=== PATIENT | female | born 1945 | race Caucasian/White ===

== ENCOUNTER → 2016-12-04 | Outpatient (CLI) | payer OTHER ==
[~2016-12-04] MED LIST: ACET-1256 PO; ANT25 PO; ASPI81TA28 PO; CALC-20 PO; CYCL0.052 OP; GLUCTAB7; KETO1DRO13 OPB; KLN1X PO; LEVO-217 PO; LEVO50TA6 PO; MAGN1CAP4 PO; MAGN250T3 PO; MAGN400T6 PO; MECL1TAB42 PO; NORT10CA2 PO; NRT/25 PO; OMEG10007 PO; POTA20TA11 PO; PRT40 PO; RIBO100C PO; RIBO100T2 PO; RIBO1TAB4 PO; RSTOPS OP; VALA1TAB31 PO; VITA400C15 PO; VITACAP37 PO
--- NOTE | 2016-12-04 16:39 | MAMMOGRAPHY REPORT ---
BILATERAL DIGITAL DIAGNOSTIC MAMMOGRAM TOMOSYNTHESIS WITH CAD AND TARGETED RIGHT ULTRASOUND: 7 CLINICAL HISTORY: History left breast cancer status post lumpectomy and radiation therapy. Also wit h a history of a benign stereotactic biopsy of the left breast. The patient is currently asymptomat ic. TECHNIQUE: Breast tomosynthesis in addition to standard 2D mammography was performed. Current study was also evaluated with a Computer Aided Detection (CAD) system. Bilateral CC and MLO 2-D and devang synthesis views were obtained. COMPARISON: Comparison is made to exams dated: 12/03/2015 mammogram, 05/29/2015 mammogram, 05/14/2015 m ammogram, and 04/26/2014 mammogram - [facility]. BREAST COMPOSITION: There are scattered areas of fibroglandular density in both breasts. FINDINGS: There are stable postsurgical changes in the left upper outer quadrant from prior lumpecto my, including stable density and mild architectural distortion seen at the lumpectomy bed. A biopsy marker clip is again noted in the left medial breast from prior benign stereotactic biopsy. There is an oval obscured mass measuring approximately 10 mm in the right 3:00 breast, which was not clear ly seen on prior exams. The remainder of both breasts are stable compared to prior exams, without s uspicious masses, calcifications, or areas of architectural distortion noted. Targeted ultrasound was performed of the right medial breast in the region of the mammographic mass. In the right breast at 3:00, 3 cm from the nipple, there is an oval circumscribed anechoic mass wh ich measures 10 x 4 x 11 mm. This corresponds with the mammographic mass and is consistent with a b enign simple cyst. IMPRESSION: ACR BI-RADS CATEGORY 2: BENIGN, TARGETED ULTRASOUND ACR BI-RADS CATEGORY 2: BENIGN Stable postsurgical changes in the left breast from prior lumpectomy. Benign 11 mm simple cyst in t he right breast at 3:00. There is no mammographic or targeted sonographic evidence of malignancy. Recommend bilateral diagnostic mammograms in one year. The patient has been verbally notified of th e results. Approximately 10% of breast cancers are not detected with mammography. A negative mammographic repor t should not delay biopsy if a clinically suggestive mass is present. Lorri Dent M.D. /:12/04/2016 14:51:43 Manufacturers Agent: Norma Garcia RT(R)(M), [facility] letter sent: Normal /2 BI-RADS Code: ACR BI-RADS Category 2: Benign Ultrasound BI-RADS: ACR BI-RADS Category 2: Benign
== END | disposition home or self-care (01) ==
LOC: C.MAMM 13:52
PROVIDERS: ATTEND Radiology Radiation Oncology
DX: C50.912 Malignant neoplasm of unspecified site of left female breast (principal); N60.01 Solitary cyst of right breast

== ENCOUNTER 2017-07-23 21:24 | Observation (INO) | payer OTHER ==
[~2017-07-23] VITALS: Ht 154.9 cm; Wt 66.8 kg
[~2017-07-23 21:24] MED LIST changes: -CYCL0.052 OP; -KETO1DRO13 OPB; -LEVO50TA6 PO; -MAGN1CAP4 PO; -MAGN250T3 PO; -MECL1TAB42 PO; -NRT/25 PO; -POTA20TA11 PO; -PRT40 PO; -RIBO100C PO; -RIBO1TAB4 PO; -VITACAP37 PO
[2017-07-23] MEDS ORDERED: LEVO50TA6 PO (22:02)
[2017-07-23] MEDS ORDERED: NRT/25 PO (22:02)
--- NOTE | 2017-07-23 22:25 | EMERGENCY ROOM VISIT NOTE ---
History Report prepared by Roxy: Regan Sher Under the Supervision of: John VillegasO. First contact with patient: 21:56 Chief Complaint: CHEST PAIN Stated Complaint: CHEST PAIN Nursing Triage Summary: pt arrives via ALS from the critical access [facility] per ALS pt reports chest pressure/heaviness accross the middle of her chest she also reports pressure in the back of her head, she has a history of vertigo she reports she took meclizine @ 1900 and ASA 81mg @ 2000 EMS also gave her 324mg ASA pt reports no relief from either medications pt states concern about blood pressure being higher than normal also reports Tape allergy History of Present Illness The patient is a 72 year old female who presents to the Emergency Room with complaints of constant, localized, anterior chest pressure beginning 5 hours ago. The patient states she was walking around the critical access hospital and all of a sudden her symptoms appeared. She reports she experienced chest pressure, fatigue, nausea, decreased appetite, and head pressure. The patient notes that she went to her motor home and laid down in the AC. She states she has a history of vertigo, and she thought maybe that's what it was. She notes that stress typically triggers her vertigo. The patient reports that it was not like a typical vertigo experience, but she still took a meclizine 3 hours ago. She notes that her ears became hot. The patient states that she took her blood pressure, and it was 143/95; her baseline is 110/60. She reports that she took a baby aspirin thinking her symptoms were heart related. The patient notes that she called her to have EMS come and take her blood pressure. She states that EMS hooked her up to a heart machine and told her she should go to the ED. The patient reports that she went to the bathroom in the ED. She notes that when she came out, her ears were hot, and she was very pale. The patient states that she has never had symptoms like this before. She denies arm pain, jaw pain, shortness of breath, changes in bowel movement, changes in urination, edema to the legs, dehydration, medication changes, cough, recent cold, history of thyroid problems, and seeing a manager employee benefits. Source of History: patient Onset: 5 hours ago Position: chest Quality: pressure Timing: constant Associated Symptoms: + nausea, + fatigue, No cough, No SOB Note: Associated symptoms: decreased appetite, head pressure, hot ears, pale skin Denies arm pain, jaw pain, changes in bowel movement, changes in urination, edema to the legs, dehydration, medication changes, and recent cold. Review of Systems See HPI for pertinent positives & negatives. A total of 10 systems reviewed and were otherwise negative. Past Medical & Surgical Medical Problems: (1) Back strain (2) Carcinoma of upper-outer quadrant of left female breast (3) Contusion of sacral region (4) Depressive Disorder Nec (5) Head injury (6) Hyperlipidemia Nec/Nos (7) Hypothyroidism (8) Malign Neopl Breast Nos (9) Spasm of back muscles (10) Vertigo Surgical Problems: (1) H/O breast surgery (2) History of colon resection (3) Hx of cholecystectomy Family History FHx: cancer Social History Smoking Status: Never Smoker Alcohol Use: none Drug Use: none Marital Status: Housing Status: lives with family Occupation Status: employed Current/Historical Medications Scheduled Aspirin (Aspirin Ec), 81 MG PO DAILY Calcium Carbonate-Vitamin D (Calcium 600 + D), 2 TAB PO DAILY Clonazepam (Clonazepam), 1 MG PO HS Cyclosporine (Restasis Eye Drops), 1 DROP OP BID Fish Oil (Sherwood-3), 2 CAP PO DAILY Wcpbcdhorqg-Rbqztyyvqzw-Rtb C- (Glucosamine Chondroitin), 3,000 MG DAILY Ketotifen Fumarate (Ophth) (Thera Tears Allergy Eye I), 1 DROP OPB DIRECTED Levothyroxine Sodium (Levothyroxine Sodium), 50 MCG PO DAILY Magnesium Oxide (Magnesium), 500 MG PO DAILY Meclizine (Antivert *), 25 MG PO Q6HR PRN Nortriptyline Hcl (Pamelor), 25 MG PO HS Potassium Chloride Microencaps (Potassium Chloride Cr), 20 MEQ PO DAILY Riboflavin (Riboflavin), 400 MG PO DAILY Tocopheryl Acet,Dl-Alpha (Vitamin E), 400 INTER.UNIT PO BID Scheduled PRN Valacyclovir Hcl (Valtrex), 0 PO UD PRN for COLD SORES Allergies Coded Allergies: Codeine (Verified Adverse Reaction, Intermediate, SEVERE LETHARGY (" KNOCKS ME OUT"), 12/20/14) Uncoded Allergies: TAPE (Allergy, Severe, MENDEZ SEVERE REDNESS, 09/26/13) Physical Exam Vital Signs Date Time Temp Pulse Resp B/P (MAP) Pulse Ox O2 Delivery O2 Flow Rate FiO2 07/24/17 01:30 120/63 07/24/17 01:25 70 15 93 07/24/17 01:10 72 15 99 07/24/17 01:05 67 11 94 07/24/17 01:01 106/68 07/24/17 00:50 67 24 95 07/24/17 00:35 75 14 95 07/24/17 00:31 123/85 07/24/17 00:20 61 16 92 07/24/17 00:15 66 26 97 07/24/17 00:14 154/81 07/23/17 23:01 144/94 07/23/17 23:00 66 19 98 07/23/17 22:00 68 16 158/109 98 Room Air 07/23/17 21:42 70 07/23/17 21:34 97 Room Air 07/23/17 21:33 97 Room Air 07/23/17 21:33 37.0 71 20 156/82 98 Room Air Physical Exam GENERAL: alert, well appearing, well nourished, no distress, non-toxic EYE EXAM: normal conjunctiva, PERRL and EOM's grossly intact OROPHARYNX: no exudate, no erythema, lips, buccal mucosa, and tongue normal and mucous membranes are moist NECK: supple, no nuchal rigidity, no adenopathy, non-tender LUNGS: Clear to auscultation. Normal chest wall mechanics HEART: no murmurs, S1 normal and S2 normal ABDOMEN: abdomen soft, non-tender, normo-active bowel sounds, no masses, no rebound or guarding. CHEST: No reproducible chest tenderness. BACK: Back is symmetrical on inspection and there is no deformity, no midline tenderness, no CVA tenderness. SKIN: no rashes and no bruising UPPER EXTREMITIES: upper extremities are grossly normal. LOWER EXTREMITIES: No pitting edema. NEURO EXAM: Normal sensorium, cranial nerves II-XII grossly intact, normal speech, no gross weakness of arms, no gross weakness of legs. Medical Decision & Procedures ER Provider Diagnostic Interpretation: Radiology results have been interpreted by the radiologist and reviewed by me. CTA CHEST: No central pulmonary embolus. No effusion or consolidation. Cholecystectomy. Small low attenuation focus in the dome of the liver. Radiologist: Robyn Renee MD Study ready at 0001 and initial results transmitted at 0022. CT HEAD: No acute process. Involutional changes with small vessel disease. Radiologist: Robyn Renee MD Study ready at 7890 and initial results transmitted at 9170. CHEST ONE VIEW PORTABLE CLINICAL HISTORY: 72 years-old Female presenting with chest pain. TECHNIQUE: Portable upright AP view of the chest was obtained. COMPARISON: 07/30/2007. FINDINGS: Surgical clips noted in the left axilla. Cardiomediastinal silhouette normal. Lungs and pleural spaces clear. Osseous structures normal. Cholecystectomy clips noted. IMPRESSION: 1. No acute cardiopulmonary disease. Electronically signed by: Dean Quijano M.D. 07/23/2017 11:00 PM Dictated Date/Time: 07/23/2017 11:00 PM Laboratory Results 07/23/17 21:05 Red Blood Count 4.62, Mean Corpuscular Volume 94.2, Mean Corpuscular Hemoglobin 32.0, Mean Corpuscular Hemoglobin Concent 34.0, Mean Platelet Volume 10.4, Neutrophils (%) (Auto) 44.2, Lymphocytes (%) (Auto) 44.1, Monocytes (%) (Auto) 8.9, Eosinophils (%) (Auto) 1.9, Basophils (%) (Auto) 0.6, Neutrophils # (Auto) 2.98, Lymphocytes # (Auto) 2.98, Monocytes # (Auto) 0.60, Eosinophils # (Auto) 0.13, Basophils # (Auto) 0.04 Test 07/23/17 21:05 07/24/17 00:00 White Blood Count 6.75 K/uL (4.8-10.8) Red Blood Count 4.62 M/uL (4.2-5.4) Hemoglobin 14.8 g/dL (12.0-16.0) Hematocrit 43.5 % (37-47) Mean Corpuscular Volume 94.2 fL (80-100) Mean Corpuscular Hemoglobin 32.0 pg (25-34) Mean Corpuscular Hemoglobin Concent 34.0 g/dl (32-36) Platelet Count 218 K/uL (130-400) Mean Platelet Volume 10.4 fL (7.4-10.4) Neutrophils (%) (Auto) 44.2 % Lymphocytes (%) (Auto) 44.1 % Monocytes (%) (Auto) 8.9 % Eosinophils (%) (Auto) 1.9 % Basophils (%) (Auto) 0.6 % Neutrophils # (Auto) 2.98 K/uL (1.4-6.5) Lymphocytes # (Auto) 2.98 K/uL (1.2-3.4) Monocytes # (Auto) 0.60 K/uL (0.11-0.59) Eosinophils # (Auto) 0.13 K/uL (0-0.5) Basophils # (Auto) 0.04 K/uL (0-0.2) RDW Standard Deviation 42.6 fL (36.4-46.3) RDW Coefficient of Variation 12.5 % (11.5-14.5) Immature Granulocyte % (Auto) 0.3 % Immature Granulocyte # (Auto) 0.02 K/uL (0.00-0.02) Prothrombin Time 9.8 SECONDS (9.0-12.0) Prothromb Time International Ratio 0.9 (0.9-1.1) D-Dimer 570 ug/L FEU (0-500) Magnesium Level 2.3 mg/dl (1.8-2.4) Total Bilirubin 0.3 mg/dl (0.2-1) Aspartate Amino Transf (AST/SGOT) 22 U/L (15-37) Alanine Aminotransferase (ALT/SGPT) 30 U/L (12-78) Alkaline Phosphatase 98 U/L (45-117) Pro-B-Type Natriuretic Peptide 71 pg/ml (0-900) Total Protein 7.6 gm/dl (6.4-8.2) Albumin 3.5 gm/dl (3.4-5.0) Globulin 4.1 gm/dl (2.5-4.0) Albumin/Globulin Ratio 0.9 (0.9-2) Thyroid Stimulating Hormone (TSH) 5.450 uIu/ml (0.300-4.500) Chemistry Specimen Hemolysis Urine Color YELLOW Urine Appearance CLEAR (CLEAR) Urine pH 8.0 (4.5-7.5) Urine Specific Henderson 1.038 (1.000-1.030) Urine Protein NEG (NEG) Urine Glucose (UA) NEG (NEG) Urine Ketones NEG (NEG) Urine Occult Blood NEG (NEG) Urine Nitrite NEG (NEG) Urine Bilirubin NEG (NEG) Urine Urobilinogen NEG (NEG) Urine Leukocyte Esterase MODERATE (NEG) Urine WBC (Auto) 5-10 /hpf (0-5) Urine RBC (Auto) 0-4 /hpf (0-4) Urine Hyaline Casts (Auto) 0 /lpf (0-5) Urine Epithelial Cells (Auto) 5-10 /lpf (0-5) Urine Bacteria (Auto) NEG (NEG) Laboratory results per my review. Medications Administered Medications (Trade) Dose Ordered Sig/Royce Route Start Time Stop Time Status Last Admin Dose Admin Acetaminophen (Tylenol Tab) 1,000 mg NOW STAT PO 07/23/17 23:00 07/23/17 23:01 DC 07/23/17 23:00 1,000 MG Nitroglycerin (Nitroglycerin 2% Oint) 1 inch NOW ONCE EXT 07/23/17 23:00 07/23/17 23:01 DC 07/23/17 23:00 1 INCH Clonazepam (Klonopin Tab) 1 mg NOW STAT PO 07/24/17 01:10 07/24/17 01:11 DC 07/24/17 01:15 1 MG ECG Indication: other (chest pressure) Rate (beats per minute): 72 Rhythm: normal sinus Findings: no acute ischemic change, no ectopy, other (Normal axis and intervals ) ED Course 2158: The patient was evaluated in room B02. A complete history and physical exam was performed. 2300: Ordered Nitroglycerin 1 inch EXT, Tylenol Tab 1000mg PO 0028: Upon reevaluation, the patient is resting. Her chest pressure and head pressure are slightly better but still present. I discussed the findings and the treatment plan with the patient. She expresses agreement and understanding. 0044: I [facility] the patient's [facility] The patient will be evaluated for further treatment. Medical Decision Differential diagnoses includes but is not limited to acute coronary syndrome, myocardial infarction, pericarditis, pulmonary embolus, aortic dissection, pneumonia, pneumothorax, musculoskeletal, shingles, esophageal. Patient low risk by heart score however given persistence of chest pressure, and symptoms not typical for usual vertigo, no other obvious etiology, patient admitted for continued evaluation, serial enzymes, and treatment. Patient's chest pressure improved with nitroglycerin paste, head pressure improved with Tylenol. CT the patient's head negative, no other focal neuro deficits. Presentation different from patient's vertigo no improvement with her usual meclizine. No evidence of occult infection. Patient with elevated dimer and cannot be ruled out using perc criteria, CTA of the chest reassuring. Patient with mild hypertension here, other vital signs stable throughout. Discussed with hospitalist. Patient and states she was drinking water throughout the day and eating regularly, presentation not classically suggestive of dehydration or heat exhaustion related to outdoor activities. Medication Reconcilliation Current Medication List: was personally reviewed by me Blood Pressure Screening Patient's blood pressure: Elevated blood pressure Blood pressure disposition: Elevated BP felt to be situational Consults Time Called: 39 Consulting Physician: Ricky Meyers Hospitalist Returned Call: 43 I discussed the patient's case with Ricky Meyers Hospitalist. The patient will be evaluated for further treatment. Impression Primary Impression: Chest pain Additional Impressions: Headache HTN (hypertension) Scribe Attestation The scribe's documentation has been prepared under my direction and personally reviewed by me in its entirety. I confirm that the note above accurately reflects all work, treatment, procedures, and medical decision making performed by me. Departure Information Dispostion Being Evaluated By Hospitalist Prescriptions Potassium Chloride Microencaps (POTASSIUM CHLORIDE CR) 20 Meq Tab 20 MEQ PO DAILY, #30 TAB 5 Refills Prov: Eren Fitzgerald M.D. 07/24/17 Referrals Demetria Rayo M.D. (PCP) Patient Instructions My [facility] Problem Qualifiers Primary Impression: Chest pain Chest pain type: unspecified Qualified Codes: R07.9 - Chest pain, unspecified Additional Impressions: Headache Headache type: unspecified Headache chronicity pattern: acute headache Intractability: not intractable Qualified Codes: R51 - Headache HTN (hypertension) Hypertension type: unspecified Qualified Codes: I10 - Essential (primary) hypertension
[2017-07-23] MEDS ORDERED: KETO1DRO13 OPB (22:26)
[2017-07-23] MEDS ORDERED: MAGN1CAP4 PO (22:26)
[2017-07-23 22:53] LABS: BASO % 0.6 %; BASO ABS # 0.04 K/uL (0-0.2); COMPLETE YES; EOS % 1.9 %; HEMATOCRIT 43.5 % (37-47); IG% 0.3 %; LYMPH % 44.1 %; LYMPH ABS # 2.98 K/uL (1.2-3.4); MEAN CELL VOLUME 94.2 fL (80-100); MEAN PLATELET VOLUME 10.4 fL (7.4-10.4); MONO % 8.9 %; NEUT % 44.2 %; PLATELET COUNT 218 K/uL (130-400); RED BLOOD COUNT 4.62 M/uL (4.2-5.4); WHITE BLOOD COUNT 6.75 K/uL (4.8-10.8)
[2017-07-23] MEDS ORDERED: NITROGLYCERIN OINT 2% 1GM PACKET EXT ONE (23:00)
[2017-07-23] MEDS ORDERED: ACETAMINOPHEN 500 MG TAB PO STA (23:00)
[2017-07-23 23:02] LABS: INR 0.9 (0.9-1.1); PROTHROMBIN TIME (PATIENT) 9.8 SECONDS (9.0-12.0)
--- NOTE | 2017-07-23 23:02 | DIAGNOSTIC IMAGING REPORT ---
CHEST ONE VIEW PORTABLE CLINICAL HISTORY: 72 years-old Female presenting with chest pain. TECHNIQUE: Portable upright AP view of the chest was obtained. COMPARISON: 07/30/2007. FINDINGS: Surgical clips noted in the left axilla. Cardiomediastinal silhouette normal. Lungs and pleural spaces clear. Osseous structures normal. Cholecystectomy clips noted. IMPRESSION: 1. No acute cardiopulmonary disease. Electronically signed by: Dean Quijano M.D. 07/23/2017 11:00 PM Dictated Date/Time: 07/23/2017 11:00 PM
[2017-07-23 23:06] LABS: ALT/SGPT 30 U/L (12-78); BLOOD UREA NITROGEN 22 mg/dl (7-18); BUN/CREATININE RATIO 20.4 (10-20); CALCIUM 8.9 mg/dl (8.5-10.1); CARBON DIOXIDE 30 mmol/L (21-32); CHLORIDE 107 mmol/L (98-107); GLUCOSE 85 mg/dl (70-99); MAGNESIUM 2.3 mg/dl (1.8-2.4); POTASSIUM 3.9 mmol/L (3.5-5.1); SODIUM 142 mmol/L (136-145)
[2017-07-23 23:26] LABS: ALB/GLOB RATIO 0.9 (0.9-2); ALKALINE PHOSPHATASE 98 U/L (45-117); AST/SGOT 22 U/L (15-37)
[2017-07-23] MEDS ORDERED: OPTIRAY 320 IV PRN (23:30)
[2017-07-24] MEDS ORDERED: CLONAZEPAM 1 MG TAB PO STA (00:53)
--- NOTE | 2017-07-24 00:53 | History and Physical ---
History & Physical Date & Time of Service: Jul 24, 2017 at 00:53 Chief Complaint: Chest Pain Primary Care Physician: Demetria Rayo M.D. History of Present Illness Source: patient This a 72 yo F with prior hx of breast CA , hyperlipidemia , Hypothyroidism , present to ED with ongoing central chest pain /heaviness pt was at [facility] earlier ,was walking around with her -they have a motor home at site she started to experience central chest discomfort , heaviness , dizzy spell had sit down to rest , had minimum improvement of symptom she continued to feel unwell , went back to her motor home to rest , continued to have central heaviness , SOB , found her blood pressure to be elevated than her usual baseline The Medics on the site was called , pt had repeat vitals checked SBP was in 130' s ( pt mentions her baseline usually 118-120 ) due to her ongoing angina symptom -pt was directed to ED for eval Past Medical/Surgical History Medical Problems: (1) Back strain Status: Resolved (2) Carcinoma of upper-outer quadrant of left female breast Permanent Comment: Abnormal left breast mammogram Status post biopsy revealing invasive ductal carcinoma Status post lumpectomy and sentinel lymph node biopsy pathologic [id number] estrogen receptor positive, progesterone receptor positive, HER-2/arie negative Oncotype DX score of 12 Status post completion of radiation therapy 01/20/2014 received 5940 cGy Did not tolerate antiestrogen therapy Status: Resolved (3) Contusion of sacral region Status: Resolved (4) Depressive Disorder Nec Status: Chronic (5) Head injury Status: Resolved (6) Hyperlipidemia Nec/Nos Status: Chronic (7) Hypothyroidism Status: Chronic (8) Malign Neopl Breast Nos Status: Resolved (9) Spasm of back muscles Status: Resolved (10) Vertigo Status: Chronic Surgical Problems: (1) H/O breast surgery Status: Resolved (2) History of colon resection Status: Resolved (3) Hx of cholecystectomy Status: Resolved Family History FHx: cancer Social History Smoking Status: Never Smoker Drug Use: none Marital Status: Occupational Status: employed Immunizations History of Influenza Vaccine: Unknown History of Tetanus Vaccine?: Unknown History of Pneumococcal: Unknown History of Hepatitis B Vaccine: Unknown Multi-Drug Resistant Organisms History of MDRO: No Allergies Coded Allergies: Codeine (Verified Adverse Reaction, Intermediate, SEVERE LETHARGY (" KNOCKS ME OUT"), 12/20/14) Uncoded Allergies: TAPE (Allergy, Severe, MENDEZ SEVERE REDNESS, 09/26/13) Home Medications Scheduled Aspirin (Aspirin Ec), 81 MG PO DAILY Calcium Carbonate-Vitamin D (Calcium 600 + D), 2 TAB PO DAILY Clonazepam (Clonazepam), 1 MG PO HS Cyclosporine (Restasis Eye Drops), 1 DROP OP BID Fish Oil ([place]-3), 2 CAP PO DAILY Nzgtdtpsztt-Msyujnpxjwu-Jqy C- (Glucosamine Chondroitin), 3,000 MG DAILY Ketotifen Fumarate (Ophth) (Thera Tears Allergy Eye I), 1 DROP OPB DIRECTED Levothyroxine Sodium (Levothyroxine Sodium), 50 MCG PO DAILY Magnesium Oxide (Magnesium), 500 MG PO DAILY Meclizine (Antivert *), 25 MG PO Q6HR PRN Nortriptyline Hcl (Pamelor), 25 MG PO HS Potassium Chloride Microencaps (Potassium Chloride Cr), 20 MEQ PO DAILY Riboflavin (Riboflavin), 400 MG PO DAILY Tocopheryl Acet,Dl-Alpha (Vitamin E), 400 INTER.UNIT PO BID Scheduled PRN Valacyclovir Hcl (Valtrex), 0 PO UD PRN for COLD SORES Review of Systems Constitutional: + sweats, + weakness, + fatigue Respiratory: + shortness of breath, + dyspnea on exertion Cardiovascular: + chest pain (CENTRAL CHEST HEAVINESS ) Abdomen: No pain, No nausea, No vomiting, No diarrhea, No constipation, No GI bleeding, No problem reported Neurologic: + weakness, + vertigo Psychiatric: + anxiety Endocrine: + fatigue Physical Exam Vital Signs Date Time Temp Pulse Resp B/P (MAP) Pulse Ox O2 Delivery O2 Flow Rate FiO2 07/24/17 00:15 66 26 97 07/24/17 00:14 154/81 07/23/17 23:01 144/94 07/23/17 23:00 66 19 98 07/23/17 22:00 68 16 158/109 98 Room Air 07/23/17 21:42 70 07/23/17 21:34 97 Room Air 07/23/17 21:33 97 Room Air 07/23/17 21:33 37.0 71 20 156/82 98 Room Air General Appearance: no apparent distress Head: normocephalic, atraumatic Eyes: normal inspection, PERRL, EOMI, sclerae normal Neck: supple, no adenopathy, thyroid normal, no JVD, no carotid bruits, trachea midline Respiratory/Chest: chest non-tender, lungs clear, normal breath sounds, no respiratory distress, no accessory muscle use Cardiovascular: regular rate, rhythm, no edema, no gallop, no JVD, no murmur, normal peripheral pulses Abdomen/GI: normal bowel sounds, non tender, soft Extremities/Musculoskelatal: normal inspection, no calf tenderness, normal capillary refill, no pedal edema, normal range of motion Neurologic/Psych: no motor/sensory deficits, alert, normal mood/affect, oriented x 3 Skin: normal color, warm/dry, no rash Lymphatic: no adenopathy Diagnostics Laboratory Results Results Past 24 Hours Test 07/23/17 21:05 Range/Units White Blood Count 6.75 4.8-10.8 K/uL Red Blood Count 4.62 4.2-5.4 M/uL Hemoglobin 14.8 12.0-16.0 g/dL Hematocrit 43.5 37-47 % Mean Corpuscular Volume 94.2 80-100 fL Mean Corpuscular Hemoglobin 32.0 25-34 pg Mean Corpuscular Hemoglobin Concent 34.0 32-36 g/dl Platelet Count 218 130-400 K/uL Mean Platelet Volume 10.4 7.4-10.4 fL Neutrophils (%) (Auto) 44.2 % Lymphocytes (%) (Auto) 44.1 % Monocytes (%) (Auto) 8.9 % Eosinophils (%) (Auto) 1.9 % Basophils (%) (Auto) 0.6 % Neutrophils # (Auto) 2.98 1.4-6.5 K/uL Lymphocytes # (Auto) 2.98 1.2-3.4 K/uL Monocytes # (Auto) 0.60 0.11-0.59 K/uL Eosinophils # (Auto) 0.13 0-0.5 K/uL Basophils # (Auto) 0.04 0-0.2 K/uL RDW Standard Deviation 42.6 36.4-46.3 fL RDW Coefficient of Variation 12.5 11.5-14.5 % Immature Granulocyte % (Auto) 0.3 % Immature Granulocyte # (Auto) 0.02 0.00-0.02 K/uL Prothrombin Time 9.8 9.0-12.0 SECONDS Prothromb Time International Ratio 0.9 0.9-1.1 D-Dimer 570 0-500 ug/L FEU Sodium Level 142 136-145 mmol/L Potassium Level 3.9 3.5-5.1 mmol/L Chloride Level 107 98-107 mmol/L Carbon Dioxide Level 30 21-32 mmol/L Anion Gap 5.0 3-11 mmol/L Blood Urea Nitrogen 22 7-18 mg/dl Creatinine 1.10 0.60-1.20 mg/dl Est Creatinine Clear Calc Drug Dose 42.4 ml/min Estimated GFR () 58.9 Estimated GFR (Non- 50.8 BUN/Creatinine Ratio 20.4 10-20 Random Glucose 85 70-99 mg/dl Calcium Level 8.9 8.5-10.1 mg/dl Magnesium Level 2.3 1.8-2.4 mg/dl Total Bilirubin 0.3 0.2-1 mg/dl Aspartate Amino Transf (AST/SGOT) 22 15-37 U/L Alanine Aminotransferase (ALT/SGPT) 30 12-78 U/L Alkaline Phosphatase 98 45-117 U/L Troponin I < 0.015 0-0.045 ng/ml Pro-B-Type Natriuretic Peptide 71 0-900 pg/ml Total Protein 7.6 6.4-8.2 gm/dl Albumin 3.5 3.4-5.0 gm/dl Globulin 4.1 2.5-4.0 gm/dl Albumin/Globulin Ratio 0.9 0.9-2 Thyroid Stimulating Hormone (TSH) 5.450 0.300-4.500 uIu/ml Chemistry Specimen Hemolysis Diagnostic Radiology CT HEAD WITH OUT CONTRAST : Impression: No acute intracranial abnormality. CXR normal, No Infiltrate, No Mass, No Effusion EKG Normal sinus rhythm Normal ECG When compared with ECG of 04-OCT-2007 07:45, No significant change was found Impression Assessment and Plan CHEST PAIN /ANGINA EQUIVALENT : presented with typical symptom of central chest heaviness, SOB associated with exertion symptom was mildly improved with rest cardiac marker -initial lab wnl , EKG normal sinus with out ST-T wave changes no prior hx of CAD given pt's age /hx of HTN /hyperlipidemia -moderate to high risk for CAD due to above symptom pt will be monitored in tele serial cardiac markers to be checked q 8hrs X2 resting ECHO ordered in AM will need Cardiac stress test if serial cardiac markers are negative and pt remains chest pain free ordered for NPO for possible cardiac stress test in AM cont with Aspirin 81 mg fasting lipid panel ordered will benefit with addition of statin if LDL > 100 HYPOTHYROIDISM cont Levothyroxine TSH mildly elevated ordered for Free T4 in AM labs CHRONIC DIZZY SPELL : also complains of frontal headache after initiating Nitro paste CT head -negative for acute CVA cont PRN Meclizine -pt's home med FULL CODE : DVT PROPHYLAXIS : sub q heparin DISPOSITION : expected to be discharged home when medically stable Medicine follow up with Dr Rayo Additional Copies To Demetria Rayo M.D.
[2017-07-24] MEDS ORDERED: CLONAZEPAM 0.5 MG TAB PO STA (01:10)
[2017-07-24] MEDS ORDERED: ALUMINUM/MAGNESIUM/SIMETH (MAALOX MAX) 30 ML UDC PO PRN (01:45)
[2017-07-24] MEDS ORDERED: ONDANSETRON INJ 2 MG/ML 2 ML VIAL IV PRN (01:45)
[2017-07-24] MEDS ORDERED: MAGNESIUM HYDROXIDE SUSP 30 ML UDC PO PRN (01:45)
[2017-07-24] MEDS ORDERED: NITROGLYCERIN 0.4 MG SL PER TAB CHARGE SL PRN (01:45)
[2017-07-24] MEDS ORDERED: MECLIZINE HCL 25 MG TAB PO PRN (01:45)
[2017-07-24] MEDS ORDERED: ZOLPIDEM TARTRATE 5 MG TAB PO PRN (01:45)
[2017-07-24] MEDS ORDERED: ACETAMINOPHEN 325 MG TAB PO PRN (01:45)
[2017-07-24] MEDS ORDERED: POLYETHYLENE (MIRALAX) 17 GM PACK PO PRN (01:45)
[2017-07-24] MEDS ORDERED: SODIUM CHLORIDE 0.9% 1000ML 1,000 ML IV SCH (02:15)
[2017-07-24 02:30] VITALS: BP 136/85; PULSE 64; TEMP 36.4; O2SAT 99; Ht 154.9 cm; Wt 66.8 kg
[2017-07-24 03:00] LABS: URINE APPEARANCE CLEAR (CLEAR); URINE BILIRUBIN NEG (NEG); URINE COLOR YELLOW; URINE NITRITE NEG (NEG); URINE SPECIFIC GRAVITY 1.038 (1.000-1.030); UROBILINOGEN NEG (NEG); ZZUR CULT IF INDIC CLEAN CATCH NO
[2017-07-24 03:03] LABS: MANUAL MICROSCOPIC REQUIRED? NO; REVIEW REQ? NO
[2017-07-24] MEDS: HEPARIN SOD 5000 UNIT/0.5 ML CARP SQ SCH ×2 (06:04→14:00)
[2017-07-24] MEDS ORDERED: LEVOTHYROXINE 50 MCG TAB PO SCH (06:30)
--- NOTE | 2017-07-24 07:20 | DIAGNOSTIC IMAGING REPORT ---
HEAD CT NONCONTRAST CT DOSE: 537.48 mGy.cm HISTORY: dizzy, headache TECHNIQUE: Multiaxial CT images of the head were performed without the use of intravenous contrast. Automated exposure control was utilized for this study. A dose lowering technique was utilized adhering to the principles of ALARA. Comparison: Head CT 12/27/2014. Findings: The paranasal sinuses and mastoid air cells are clear. The calvarium and skull base are intact. There is no mass, hematoma, midline shift, acute infarct. White matter hypodensity is nonspecific but suggestive of microvascular ischemic change. The ventricles and sulci demonstrate mild age-related involutional changes. Impression: No acute intracranial abnormality. Electronically signed by: Tramaine Winston M.D. 07/24/2017 7:19 AM Dictated Date/Time: 07/24/2017 7:16 AM
--- NOTE | 2017-07-24 07:37 | DIAGNOSTIC IMAGING REPORT ---
CT ANGIOGRAM OF THE CHEST CLINICAL HISTORY: Atypical chest pain. COMPARISON STUDY: Chest x-ray dated 07/23/2017. TECHNIQUE: Following the IV administration of 88 cc of Optiray 320, CT angiogram of the chest was performed from the upper abdomen to the thoracic inlet utilizing the pulmonary embolus protocol. Images are reviewed in the axial, sagittal, and coronal planes. 3-D MIPS images are created and assessed. IV contrast was administered without complication. A dose lowering technique was utilized adhering to the principles of ALARA. CT DOSE: 249.03 mGy.cm FINDINGS: Thyroid: Imaged portions of the thyroid gland are normal in size and attenuation. Thoracic aorta: The thoracic aorta is normal in caliber and demonstrates standard 3-vessel arch anatomy. No dissection is seen. Pulmonary vasculature: The pulmonary trunk is normal in caliber. There are no filling defects identified in main, lobar, or segmental pulmonary branches to suggest pulmonary embolus. Heart: The heart is normal in size and configuration, and without pericardial effusion. Lungs and pleural spaces: Evaluation of the lung parenchyma is modestly degraded by motion artifact. No airspace consolidation or pleural effusion is seen. A 3 mm low suspicion nodules incidentally noted in the right lung base on image #58. The trachea and central airways are clear. Mediastinum: There is no mediastinal lymphadenopathy. Areli: Clear. Axillae: There is no axillary lymphadenopathy. Surgical clips are noted in the left axilla. Upper abdomen: Cholecystectomy clips are noted. A 1.3 cm cyst is noted in the right lobe of the liver. Skeletal structures: The skeletal structures are osteopenic. Degenerative change is seen throughout the thoracic spine. There are mild age indeterminant compression deformities of T3, T5, T11, and T12. No lytic or blastic bony lesions are seen. IMPRESSION: 1. There is no evidence of pulmonary embolus in the main, lobar, or segmental pulmonary arteries. 2. There is no airspace consolidation or pleural effusion. Electronically signed by: Gerardo Alcocer M.D. 07/24/2017 7:36 AM Dictated Date/Time: 07/24/2017 7:24 AM
[2017-07-24 07:44] VITALS: BP 101/59; PULSE 68; TEMP 36.3; O2SAT 94
[2017-07-24] MEDS ORDERED: RESTASIS~ORDER AWAITING ACTION SCH (08:00)
[2017-07-24] MEDS ORDERED: KETOTIFEN~ORDER AWAITING ACTION SCH (08:00)
[2017-07-24 08:20] LABS: CKMB/CK RATIO 1.3 (0-3.0)
[2017-07-24 08:29] LABS: BUN/CREATININE RATIO 24.6 (10-20); CALCIUM 8.2 mg/dl (8.5-10.1); CREATININE 0.82 mg/dl (0.60-1.20); POTASSIUM 3.7 mmol/L (3.5-5.1)
[2017-07-24 08:31] LABS: CHOLESTEROL/HDL RATIO 3.5
[2017-07-24] MEDS ORDERED: TOCOPHERYL, DL-ALPHA 400 INTER.UNIT CAP PO SCH (09:00)
[2017-07-24] MEDS ORDERED: [UNRECOGNIZED DRUG - OTHER] SCH (09:00)
[2017-07-24] MEDS ORDERED: OMEGA-3 (PURIFIED FISH OIL) 1 GM CAP PO SCH (09:00)
[2017-07-24] MEDS ORDERED: ASPIRIN 81 MG ECTAB PO SCH (09:00)
[2017-07-24] MEDS ORDERED: CHONDROITIN SCH (09:00)
[2017-07-24] MEDS ORDERED: ASCORBIC ACID SCH (09:00)
[2017-07-24] MEDS ORDERED: GLUCOSAMINE SCH (09:00)
[2017-07-24] MEDS ORDERED: MAGNESIUM OXIDE 400 MG TAB PO SCH (09:00)
[2017-07-24] MEDS ORDERED: CALCIUM 600MG + VIT D 400 IU TAB PO SCH (09:00)
[2017-07-24 10:51] VITALS: BP 113/74; PULSE 76; TEMP 36.4; O2SAT 96
--- NOTE | 2017-07-24 13:13 | CARDIOLOGY CONSULTATION ---
DATE OF CONSULTATION: 07/24/2017 REFERRING: Dr. Dennis. PRIMARY CARE PHYSICIAN: Dr. Rayo. INDICATIONS: Chest and head pain. HISTORY OF PRESENT ILLNESS: The patient is a 72-year-old female without prior history of cardiac disease. Underlying history is notable for hypothyroidism, hyperlipidemia, past history of breast carcinoma, history of chronic vertigo. She notes yesterday evening was at the [facility] and noted symptoms of pressure across her chest as well as pressure across the back of her head. The patient took an aspirin and meclizine in attempts to improve symptoms, was concerned that her blood pressure was elevated and checked and found to be elevated in the 140/90 range, substantially out of her usual base. [place] her ears and face have been flushed. She summoned paramedics and EMS at [facility], noted on telemetry ventricular ectopic beats and recommended ER evaluation. She was referred to [facility]. Initial EKGs were normal, as was initial troponin. The patient was asymptomatic at the time of presentation, has had no further symptoms overnight, feels "better this morning," has been ambulatory in room. Notes that she is usually ambulatory, walking more than 10,000 steps per day per her monitor. Notes no recent decline in exercise tolerance. Notes no recent fevers, chills or infections. Notes no bleeding difficulties. Notes no melena, hematochezia, dysuria or hematuria. REVIEW OF SYSTEMS: Otherwise negative. ALLERGIES: CODEINE AND TAPE. MEDICATIONS: Prior to hospitalization were aspirin 81 mg per day, calcium with vitamin D, clonazepam, cyclosporine eyedrops, omega-3 fish oils, glucosamine chondroitin, levothyroxine 50 mcg per day, Mag-Ox 500 mg p.o. q. day, meclizine, nortriptyline 25 mg at bedtime, riboflavin 100 mg p.o. q. day, vitamin E 400 units q. day, valacyclovir p.r.n. PAST SURGICAL HISTORY: Notable for prior left mastectomy in 2012, past partial colectomy, cholecystectomy and nasal septal surgery. FAMILY HISTORY: Not notable for cardiac disease. SOCIAL HISTORY: The patient resides locally. She is a nonsmoker, nondrinker. She is active about her home and through her usual exercise of walking. PHYSICAL EXAMINATION: VITAL SIGNS: Heart rate 68, blood pressure is 101/59, O2 saturation is 94% on room air. HEENT: Normocephalic and atraumatic. Nares without discharge. Throat was clear. NECK: Supple without thyromegaly, lymphadenopathy, JVD or bruit. LUNGS: Clear to auscultation. CARDIOVASCULAR: Regular with normal S1, S2. There is no murmur, gallop or rub. ABDOMEN: Soft, nontender. EXTREMITIES: Without cyanosis or clubbing. There is no peripheral edema. NEUROLOGIC: The patient is alert and oriented, moving extremities with strength. LABORATORY DATA: Since admission, troponin I's are negative x2. BNP was 71. Sodium is 142, potassium is 3.7, chloride is 110, bicarb is 26, BUN is 20, creatinine 0.82. TSH was 5.4 with T4 of 0.8. D-dimer on initial presentation was [address] scan of the chest revealed no pulmonary emboli. Telemetry reveals sinus rhythm with occasional ventricular ectopic beats. Head CT was unremarkable. Chest x-ray revealed no infiltrate or edema. Echocardiogram is pending. IMPRESSION: A 72-year-old female with symptoms of chest pressure, appears to be sensed ventricular ectopic beats, possibly by recent telemetry and EKG strips. Currently feels well this morning. Blood pressures are not elevated, only notable finding on laboratory testing is potassium level of 3.7. PLAN: Will be to refer for stress echocardiography today. No adjustments made in medical regimen, though would have low threshold for supplementing potassium chronically.
[2017-07-24] MEDS ORDERED: PERFLUTREN LIPID MICROSPHERE (DEFINITY) IV ONE (13:43)
[2017-07-24 15:36] VITALS: BP 109/66; PULSE 72; TEMP 36.6; O2SAT 97
--- NOTE | 2017-07-24 15:37 | Progress Note ---
Medicine Progress Note Date & Time of Visit: Jul 24, 2017 at 15:37 . Subjective No further chest pain. Treadmill stress echo went well. Anxious to get back to the [facility]. . Objective Last 8 Hrs Date Time Temp Pulse Resp B/P (MAP) Pulse Ox O2 Delivery O2 Flow Rate FiO2 07/24/17 15:36 36.6 72 17 109/66 (80) 97 07/24/17 12:00 Room Air 07/24/17 10:51 36.4 76 16 113/74 (87) 96 07/24/17 08:00 Room Air 07/24/17 07:44 36.3 68 16 101/59 (73) 94 Room Air Physical Exam: General- no distress Neck- no JVD Lungs- clear Heart- regular Abdomen- normal bowel sounds, soft, nontender Extremities- no pretibial edema or calf tenderness Neuro- alert, oriented . Laboratory Results: Last 24 Hours Test 07/23/17 21:05 07/24/17 00:00 07/24/17 07:41 07/24/17 15:32 White Blood Count 6.75 K/uL Red Blood Count 4.62 M/uL Hemoglobin 14.8 g/dL Hematocrit 43.5 % Mean Corpuscular Volume 94.2 fL Mean Corpuscular Hemoglobin 32.0 pg Mean Corpuscular Hemoglobin Concent 34.0 g/dl Platelet Count 218 K/uL Mean Platelet Volume 10.4 fL Neutrophils (%) (Auto) 44.2 % Lymphocytes (%) (Auto) 44.1 % Monocytes (%) (Auto) 8.9 % Eosinophils (%) (Auto) 1.9 % Basophils (%) (Auto) 0.6 % Neutrophils # (Auto) 2.98 K/uL Lymphocytes # (Auto) 2.98 K/uL Monocytes # (Auto) 0.60 K/uL Eosinophils # (Auto) 0.13 K/uL Basophils # (Auto) 0.04 K/uL RDW Standard Deviation 42.6 fL RDW Coefficient of Variation 12.5 % Immature Granulocyte % (Auto) 0.3 % Immature Granulocyte # (Auto) 0.02 K/uL Prothrombin Time 9.8 SECONDS Prothromb Time International Ratio 0.9 D-Dimer 570 ug/L FEU Sodium Level 142 mmol/L 142 mmol/L Potassium Level 3.9 mmol/L 3.7 mmol/L Chloride Level 107 mmol/L 110 mmol/L Carbon Dioxide Level 30 mmol/L 26 mmol/L Anion Gap 5.0 mmol/L 6.0 mmol/L Blood Urea Nitrogen 22 mg/dl 20 mg/dl Creatinine 1.10 mg/dl 0.82 mg/dl Est Creatinine Clear Calc Drug Dose 42.4 ml/min 55.8 ml/min Estimated GFR () 58.9 84.0 Estimated GFR (Non- 50.8 72.5 BUN/Creatinine Ratio 20.4 24.6 Random Glucose 85 mg/dl 87 mg/dl Calcium Level 8.9 mg/dl 8.2 mg/dl Magnesium Level 2.3 mg/dl Total Bilirubin 0.3 mg/dl Aspartate Amino Transf (AST/SGOT) 22 U/L Alanine Aminotransferase (ALT/SGPT) 30 U/L Alkaline Phosphatase 98 U/L Troponin I < 0.015 ng/ml < 0.015 ng/ml Pro-B-Type Natriuretic Peptide 71 pg/ml Total Protein 7.6 gm/dl Albumin 3.5 gm/dl Globulin 4.1 gm/dl Albumin/Globulin Ratio 0.9 Thyroid Stimulating Hormone (TSH) 5.450 uIu/ml Chemistry Specimen Hemolysis Urine Color YELLOW Urine Appearance CLEAR Urine pH 8.0 Urine Specific [place] 1.038 Urine Protein NEG Urine Glucose (UA) NEG Urine Ketones NEG Urine Occult Blood NEG Urine Nitrite NEG Urine Bilirubin NEG Urine Urobilinogen NEG Urine Leukocyte Esterase MODERATE Urine WBC (Auto) 5-10 /hpf Urine RBC (Auto) 0-4 /hpf Urine Hyaline Casts (Auto) 0 /lpf Urine Epithelial Cells (Auto) 5-10 /lpf Urine Bacteria (Auto) NEG Total Creatine Kinase 63 U/L Creatine Kinase MB 0.8 ng/ml Creatine Kinase MB Ratio 1.3 Triglycerides Level 80 mg/dl Cholesterol Level 250 mg/dl HDL Cholesterol 72 mg/dl LDL Cholesterol, Calculated 162 mg/dl VLDL Cholesterol, Calculated 16 mg/dl Cholesterol/HDL Ratio 3.5 Free Thyroxine 0.81 ng/dl Assessment & Plan CHEST PAIN Cardiology consulted. Acute CA ruled out. No evidence of stress-induced ischemia on treadmill stress echo. Pulmonary embolism ruled out by CT angiography. Low clinical suspicion for aortic dissection. Patient was noted to have occasional ventricular ectopy on cardiac monitoring. It was felt that perhaps patient was sensing the PVCs. Serum potassium was relatively low at 3.7. Start potassium chloride 20 mEq daily. No need for further cardiac evaluation at this time. DISPOSITION Discharge to home. Family Medicine follow-up with Dr. Rayo. . Consultants: Cardiology . Procedures: Cardiac monitoring CTA chest Treadmill stress echocardiogram . Current Inpatient Medications: Current Inpatient Medications Medications (Trade) Dose Ordered Sig/Royce Route Start Time Stop Time Status Last Admin Dose Admin Ioversol (Optiray 320) 100 ml UD PRN IV 07/23/17 23:30 07/27/17 23:29 Heparin Sodium (Porcine) (Heparin Sq 5000 Unit/0.5ml) 5,000 unit Q8 SQ 07/24/17 06:00 08/23/17 05:59 07/24/17 06:04 5,000 UNIT Acetaminophen (Tylenol Tab) 650 mg Q4H PRN PO 07/24/17 01:45 08/23/17 01:44 07/24/17 10:49 650 MG Al Hydrox/Mg Hydrox/Simethicone (Maalox Max Susp) 15 ml Q4H PRN PO 07/24/17 01:45 08/23/17 01:44 Magnesium Hydroxide (Milk Of Magnesia Susp) 30 ml Q12H PRN PO 07/24/17 01:45 08/23/17 01:44 Zolpidem Tartrate (Ambien Tab) 5 mg HSZ PRN PO 07/24/17 01:45 08/23/17 01:44 Ondansetron HCl (Zofran Inj) 4 mg Q6H PRN IV 07/24/17 01:45 08/23/17 01:44 Nitroglycerin (Nitrostat Tab) 0.4 mg UD PRN SL 07/24/17 01:45 08/23/17 01:44 Aspirin (Ecotrin Tab) 81 mg QAM PO 07/24/17 09:00 08/23/17 08:59 07/24/17 08:25 81 MG Polyethylene (Miralax Powder Packet) 17 gm DAILY PRN PO 07/24/17 01:45 08/23/17 01:44 Clonazepam (Klonopin Tab) 1 mg HS PO 07/24/17 21:00 08/23/17 20:59 Fish Oil ([place]-3 (Purified Fish Oil) Cap) 1 gm DAILY PO 07/24/17 09:00 08/23/17 08:59 07/24/17 08:26 1 GM Levothyroxine Sodium (Synthroid Tab) 50 mcg DAILYBB PO 07/24/17 06:30 08/23/17 06:59 07/24/17 06:05 50 MCG Meclizine HCl (Antivert Tab) 25 mg Q6 PRN PO 07/24/17 01:45 08/23/17 01:44 Nortriptyline HCl (Pamelor Cap) 25 mg HS PO 07/24/17 21:00 08/23/17 20:59 qq-Lushb-Bubmdudfzs Acetate (Vitamin E Cap) 400 interunit BID PO 07/24/17 09:00 08/23/17 08:59 07/24/17 08:25 400 INTERUNIT Calcium/Vitamin D (Caltrate Plus Tab) 2 tab DAILY PO 07/24/17 09:00 08/23/17 08:59 07/24/17 08:26 2 TAB Miscellaneous Information (Order Awaiting Action) 1 ea QS N/A 07/24/17 08:00 08/23/17 07:59 Miscellaneous Information (Order Awaiting Action) 1 ea QS N/A 07/24/17 08:00 08/23/17 07:59 Magnesium Oxide (Mag-Ox Tab) 400 mg DAILY PO 07/24/17 09:00 08/23/17 08:59 07/24/17 08:25 400 MG Miscellaneous Information (Order Awaiting Action) 1 ea QS N/A 07/24/17 08:00 08/23/17 07:59
--- NOTE | 2017-07-24 15:41 | EXERCISE STRESS ECHO ---
*NOTICE TO RECEIVING [employer] [employer] [facility] This information is strictly Confidential and protected under [place] law. [place] law prohibits you from making any further disclosure of this information unless further disclosure is expressly permitted by the written consent of the person to whom it pertains or is authorized by law. A general authorization for the release of medical or other information is not sufficient for this purpose. Hospital accepts no responsibility if the information is made available to any other person, INCLUDING THE PATIENT. Interpretation Summary * Name: BIANCA MALLORY Study Date: 07/24/2017 12:17 PM BP: 121/77 mmHg * Patient Location: [facility]\S\N280\S\1 HR: 66 * : 1945 (M/d/yyyy) Gender: Female Height: 61 in * Age: 72 yrs Ethnicity: [place] Weight: 147 lb * Ordering Physician: Vijay Jaime * Referring Physician: Self, Referred * Performed By: Monisha Leija RCS * * Reason For Study: Chest Pain * BSA: 1.7 m2 * The study was technically adequate. * There is no comparison study available. * STRESS STUDY: Normal exercise stress echocardiogram. No echocardiographic or ECG evidence of myocardial ischemia having achieved heart rate adequate for diagnostic purposes. * -- Conclusions -- * Ejection Fraction = 65-70%. * Resting wall motion: Normal. Stress wall motion: Appropriate increase in Left ventricular systolic function and decrease in cavity size. No stress induced segmental wall motion abnormalities. * There is borderline concentric left ventricular hypertrophy. * Grade I diastolic dysfunction, (abnormal relaxation pattern). * There is mild mitral regurgitation. * A patent foramen ovale is suspected. * Injection of agitated saline contrast was non-diagnostic due to poor subcostal image quality. Procedure Details * ECHOEX, CPT #[id number] * ECHO COLOR FLOW, CPT #[id number] * ECHO DOPPLER, CPT #[id number] * A contrast injection of Definity was performed to improve assessment of LV function. * Contrast was injected into an intravenous site in the right arm. * One vial of Definity ultrasound contrast was diluted in normal saline to a total volume of 10 ml. A total of '4' ml of solution was administered during imaging. * Lot # [id number] of Definity utilized for procedure. * Expiration date 1AUG18. * The attending nurse who injected the contrast agent was Monisha Larson RN. * A saline contrast injection was performed to assess for cardiac shunting. The injection was performed through an intravenous line in the right arm. The attending nurse who injected the saline contrast was Monisha Larson RN. A total of 10 cc of agitated saline was given Left Ventricle * The left ventricle is normal in size. * There is borderline concentric left ventricular hypertrophy. * Ejection Fraction = 65-70%. * Left ventricular systolic function is normal. * Resting wall motion: Normal. Stress wall motion: Appropriate increase in Left ventricular systolic function and decrease in cavity size. No stress induced segmental wall motion abnormalities. * The left ventricular ejection fraction increases normally with stress. The left ventricular end-systolic cavity size reduces post-stress (normal response). The left ventricular wall motion with stress is normal. Right Ventricle * The right ventricle is normal in size and function. Atria * The left atrial size is normal. * Right atrial size is normal. * A patent foramen ovale is suspected. * Injection of agitated saline contrast was non-diagnostic due to poor subcostal image quality. Mitral Valve * The mitral valve is normal. * There is no mitral valve stenosis. * There is mild mitral regurgitation. Tricuspid Valve * The tricuspid valve is normal. * There is no tricuspid stenosis. * There is trace tricuspid regurgitation. Aortic Valve * The aortic valve is trileaflet. * No hemodynamically significant valvular aortic stenosis. * No aortic regurgitation is present. Pulmonic Valve * The pulmonic valve is not well visualized. Great Vessels * The aortic root is normal size. Pericardium * There is no pericardial effusion. Stress Parameters * Normal baseline electrocardiogram. * Stress ECG: No ST changes. No arrhythmias. * The stress portion of this study was personally supervised by the undersigned interpreting physician. * Rest heart rate was '66' BPM. * Rest blood pressure was '121/77' * Maximum heart rate achieved was 148 bpm. * Maximum heart rate was 98 % of maximum age-predicted heart rate. * Maximum blood pressure was '187/89' * Total exercise time was '6:31' * Maximum exercise MET level achieved was '7.7' METS * Maximum treadmill speed was '3.4' miles per hour. * Maximum treadmill elevation was '14'% grade. * Exercise was terminated due to 'fatigue after achieving target heart rate' * Normal blood pressure response to exercise. Left Ventricular Diastolic Function * Grade I diastolic dysfunction, (abnormal relaxation pattern). MMode 2D Measurements and Calculations IVSd 1.1 cm IVSs 1.2 cm LVIDd 3.6 cm LVIDs 2.3 cm LVPWd 1.1 cm LVPWs 1.2 cm IVS/LVPW 1.0 FS 35.3 % EDV(Teich) 53.7 ml ESV(Teich) 18.4 ml EF(Teich) 65.7 % EDV(cubed) 45.9 ml ESV(cubed) 12.4 ml EF(cubed) 73.0 % % IVS thick 12.4 % % LVPW thick 10.5 % LV mass(C)d 122.8 grams LV mass(C)dI 74.1 grams/m\S\2 LV mass(C)s 80.2 grams LV mass(C)sI 48.4 grams/m\S\2 CO(Teich) 2.5 l/min CI(Teich) 1.5 l/min/m\S\2 SV(Teich) 35.3 ml SI(Teich) 21.3 ml/m\S\2 CO(cubed) 2.4 l/min CI(cubed) 1.4 l/min/m\S\2 SV(cubed) 33.5 ml SI(cubed) 20.2 ml/m\S\2 Ao root diam 3.1 cm Ao root area 7.4 cm\S\2 ACS 1.5 cm LA dimension 3.3 cm asc Aorta Diam 2.9 cm LA/Ao 1.1 LVAd ap4 25.7 cm\S\2 LVLd ap4 8.2 cm EDV(MOD-sp4) 67.0 ml LVAs ap4 11.9 cm\S\2 LVLs ap4 6.8 cm ESV(MOD-sp4) 17.0 ml EF(MOD-sp4) 74.6 % LVAd ap2 24.1 cm\S\2 LVLd ap2 7.7 cm EDV(MOD-sp2) 64.0 ml LVAs ap2 13.3 cm\S\2 LVLs ap2 6.8 cm ESV(MOD-sp2) 22.0 ml EF(MOD-sp2) 65.6 % CO(MOD-sp4) 3.6 l/min CI(MOD-sp4) 2.1 l/min/m\S\2 SV(MOD-sp4) 50.0 ml SI(MOD-sp4) 30.2 ml/m\S\2 CO(MOD-sp2) 3.0 l/min CI(MOD-sp2) 1.8 l/min/m\S\2 SV(MOD-sp2) 42.0 ml SI(MOD-sp2) 25.3 ml/m\S\2 Doppler Measurements and Calculations MV E max iain 67.2 cm/sec MV A max iain 83.6 cm/sec MV E/A 0.80 MV P1/2t max iain 69.3 cm/sec MV P1/2t 91.2 msec MVA(P1/2t) 2.4 cm\S\2 MV dec slope 222.7 cm/sec\S\2 MV dec time 0.31 sec Ao V2 max 109.9 cm/sec Ao max PG 4.8 mmHg Ao max PG (full) 2.3 mmHg LV V1 max PG 2.5 mmHg LV V1 max 79.0 cm/sec PA V2 max 83.2 cm/sec PA max PG 2.8 mmHg PI max iain 118.2 cm/sec PI max PG 5.6 mmHg PI dec slope 106.6 cm/sec\S\2 PI P1/2t 324.8 msec TR max iain 205.9 cm/sec
[2017-07-24] MEDS ORDERED: RIBO1TAB4 PO (15:42)
[2017-07-24] MEDS ORDERED: POTA20TA11 PO ×2 (15:45→15:50)
--- NOTE | 2017-07-24 15:49 | Discharge Instructions ---
Discharge Instructions Date of Service Jul 24, 2017. Admission Reason for Admission: Chest Pain Discharge Discharge Diagnosis / Problem: chest pain- no sign of heart attack or blood clot Discharge Goals Goal(s): Improve function Activity Recommendations Activity Limitations: resume your previous activity . Instructions / Follow-Up Instructions / Follow-Up FOLLOW-UP APPOINTMENTS: FAMILY MEDICINE 07/28/2017 10:40 AM Demetria Rayo MD MEDICATION CHANGES: Your potassium level was borderline low. Take potassium chloride 20 mEq daily. OTHER INSTRUCTIONS: Seek medical attention if you have: * temperature above 101 * chest pain or trouble breathing * abdominal pain, nausea, vomiting * diarrhea, dark stools or bloody stools * any unanswered questions or concerns Call 911 if symptoms are severe. Call if you have any questions or problems. My cell # is [phone]. You can also reach a [facility] hospitalist on duty at [facility] 24 hours a day by calling [phone]. Please take good care of yourself. Enjoy [employer]! Eren Fitzgerald . Current Hospital Diet Patient's current hospital diet: AHA Diet (Heart Healthy) Discharge Diet Recommended Diet: AHA Diet (Heart Healthy) Procedures Procedures Performed: CT scan of chest - no blood clots stress test - no sign of blockage in the heart's arteries Pending Studies Studies pending at discharge: no Laboratory Results Lipid Panel Test 07/24/17 07:41 Range/Units Triglycerides Level 80 0-150 mg/dl Cholesterol Level 250 H 0-200 mg/dl HDL Cholesterol 72 mg/dl Cholesterol/HDL Ratio 3.5 LDL Cholesterol, Calculated 162 mg/dl Medical Emergencies . Who to Call and When: Medical Emergencies: If at any time you feel your situation is an emergency, please call 911 immediately. . Non-Emergent Contact Non-Emergency issues call your: Primary Care Provider, Hospital Doctor . . "Provider Documentation" section prepared by Eren Fitzgerald. . VTE Core Measure Inpt VTE Proph given/why not?: Unfractionated heparin SQ
[2017-07-24 16:02] VITALS: BP 109/66; PULSE 72; TEMP 36.6; O2SAT 97
[2017-07-24] MEDS ORDERED: CLONAZEPAM 1 MG TAB PO SCH (21:00)
[2017-07-24] MEDS ORDERED: NORTRIPTYLINE HCL 25 MG CAP PO SCH (21:00)
--- NOTE | 2017-07-25 01:55 | Discharge Summary ---
Discharge Summary Date of Service Jul 25, 2017. Discharge Summary Admission Date: Jul 24, 2017 at 01:32 Discharge Date: Jul 24, 2017 Discharge Disposition: Home Principal Diagnosis: chest pain ventricular ectopy . 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 Permanent Comment: Abnormal left breast mammogram Status post biopsy revealing invasive ductal carcinoma Status post lumpectomy and sentinel lymph node biopsy pathologic [id number] estrogen receptor positive, progesterone receptor positive, HER-2/arie negative Oncotype DX score of 12 Status post completion of radiation therapy 01/20/2014 received 5940 cGy Did not tolerate antiestrogen therapy Status: Resolved (3) Contusion of sacral region Status: Resolved (4) Depressive Disorder Nec Status: Chronic (6) Hyperlipidemia Nec/Nos Status: Chronic (7) Hypothyroidism Status: Chronic (8) Malign Neopl Breast Nos Status: Resolved (10) Vertigo Status: Chronic Surgical Problems: (1) H/O breast surgery Status: Resolved (2) History of colon resection Status: Resolved (3) Hx of cholecystectomy Status: Resolved . Procedures: Cardiac monitoring CTA chest Treadmill stress echocardiogram . Consultations: Cardiology . Pending Studies/Follow-Up: Please check follow-up basic metabolic profile in clinic. . Medication Reconciliation New Medications: Potassium Chloride Microencaps (Potassium Chloride Cr) 20 Meq Tab 20 MEQ PO DAILY, #30 TAB 5 Refills Continued Medications: Aspirin (Aspirin Ec) 81 Mg Tab 81 MG PO DAILY Calcium Carbonate-Vitamin D (Calcium 600 + D) 1 Tab Tab 2 TAB PO DAILY Clonazepam (Clonazepam) 1 Mg Tab 1 MG PO HS, #30 Cyclosporine (Restasis Eye Drops) Soln 1 DROP OP BID, BTL Fish Oil ([place]-3) 1 Ea Cap 2 CAP PO DAILY, CAP Kutyqmrihns-Ucutmbasabc-Nex C- (Glucosamine Chondroitin) 1 Tab Tab 3000 MG DAILY Ketotifen Fumarate (Ophth) (Thera Tears Allergy Eye I) 0.025 % Javi 1 DROP OPB DIRECTED Levothyroxine Sodium (Levothyroxine Sodium) 50 Mcg Tab 50 MCG PO DAILY, #90 Magnesium Oxide (Magnesium) 500 Mg Cap 500 MG PO DAILY Meclizine (Antivert *) 25 Mg Tab 25 MG PO Q6HR PRN, 0 Refills Nortriptyline Hcl (Pamelor) 25 Mg Cap 25 MG PO HS, #90 Riboflavin (Riboflavin) 400 Mg Tab 400 MG PO DAILY Tocopheryl Acet,Dl-Alpha (Vitamin E) 400 Inter.unit Cap 400 INTER.UNIT PO BID, CAP Valacyclovir Hcl (Valtrex) 1 Gm Tab 0 PO UD PRN for COLD SORES Take 2 pills every 12 hrs for 3 doses as needed for cold sores. Admission Information HPI (per Admitting provider): This a 72 yo F with prior hx of breast CA , hyperlipidemia , Hypothyroidism , present to ED with ongoing central chest pain /heaviness pt was at [facility] earlier ,was walking around with her -they have a motor home at site she started to experience central chest discomfort , heaviness , dizzy spell had sit down to rest , had minimum improvement of symptom she continued to feel unwell , went back to her motor home to rest , continued to have central heaviness , SOB , found her blood pressure to be elevated than her usual baseline [facility] on the site was called , pt had repeat vitals checked SBP was in 130' s ( pt mentions her baseline usually 118-120 ) due to her ongoing angina symptom -pt was directed to ED for eval . Physical Exam (per Admitting): General Appearance: no apparent distress Head: normocephalic, atraumatic Eyes: normal inspection, PERRL, EOMI, sclerae normal Neck: supple, no adenopathy, thyroid normal, no JVD, no carotid bruits, trachea midline Respiratory/Chest: chest non-tender, lungs clear, normal breath sounds, no respiratory distress, no accessory muscle use Cardiovascular: regular rate, rhythm, no edema, no gallop, no JVD, no murmur , normal peripheral pulses Abdomen/GI: normal bowel sounds, non tender, soft Extremities/Musculoskelatal: normal inspection, no calf tenderness, normal capillary refill, no pedal edema, normal range of motion Neurologic/Psych: no motor/sensory deficits, alert, normal mood/affect, oriented x 3 Skin: normal color, warm/dry, no rash Lymphatic: no adenopathy Hospital Course CHEST PAIN Cardiology consulted. Acute IN ruled out. No evidence of stress-induced ischemia on treadmill stress echo. Pulmonary embolism ruled out by CT angiography. Low clinical suspicion for aortic dissection. Patient was noted to have occasional ventricular ectopy on cardiac monitoring. It was felt that perhaps patient was sensing the PVCs. Serum potassium was relatively low at 3.7. Start potassium chloride 20 mEq daily. No need for further cardiac evaluation at this time. DISPOSITION Discharge to home. Family Medicine follow-up with Dr. Rayo. . Discharge Instructions Date of Service Jul 24, 2017. Admission Reason for Admission: Chest Pain Discharge Discharge Diagnosis / Problem: chest pain- no sign of heart attack or blood clot Discharge Goals Goal(s): Improve function Activity Recommendations Activity Limitations: resume your previous activity . Instructions / Follow-Up Instructions / Follow-Up FOLLOW-UP APPOINTMENTS: FAMILY MEDICINE 07/28/2017 10:40 AM Demetria Rayo MD MEDICATION CHANGES: Your potassium level was borderline low. Take potassium chloride 20 mEq daily. OTHER INSTRUCTIONS: Seek medical attention if you have: * temperature above 101 * chest pain or trouble breathing * abdominal pain, nausea, vomiting * diarrhea, dark stools or bloody stools * any unanswered questions or concerns Call 911 if symptoms are severe. Call if you have any questions or problems. My cell # is [phone]. You can also reach a [facility] hospitalist on duty at [facility] 24 hours a day by calling [phone]. Please take good care of yourself. Enjoy [employer]! Eren Fitzgerald . Current Hospital Diet Patient's current hospital diet: AHA Diet (Heart Healthy) Discharge Diet Recommended Diet: AHA Diet (Heart Healthy) Procedures Procedures Performed: CT scan of chest - no blood clots stress test - no sign of blockage in the heart's arteries Pending Studies Studies pending at discharge: no Laboratory Results Lipid Panel Test 07/24/17 07:41 Range/Units Triglycerides Level 80 0-150 mg/dl Cholesterol Level 250 H 0-200 mg/dl HDL Cholesterol 72 mg/dl Cholesterol/HDL Ratio 3.5 LDL Cholesterol, Calculated 162 mg/dl Medical Emergencies . Who to Call and When: Medical Emergencies: If at any time you feel your situation is an emergency, please call 911 immediately. . Non-Emergent Contact Non-Emergency issues call your: Primary Care Provider, Hospital Doctor . . "Provider Documentation" section prepared by Eren Fitzgerald. . VTE Core Measure Inpt VTE Proph given/why not?: Unfractionated heparin SQ . Additional Copies To Demetria Rayo M.D.
== END 2017-07-24 16:15 | disposition home or self-care (01) ==
LOC: EDBD 21:24 → C.EDB 21:25 → C.MED 07-24 01:32 → ENRESERV 07-24 01:45 → CANRESERV 07-24 01:45 → ENRESERV 07-24 01:48
PROVIDERS: ADMIT Hospitalist; ATTEND Hospitalist
DX: R07.9 Chest pain, unspecified (principal); I49.3 Ventricular premature depolarization; R51 Headache; I10 Essential (primary) hypertension; Z85.3 Personal history of malignant neoplasm of breast; Z92.3 Personal history of irradiation; E78.5 Hyperlipidemia, unspecified; F32.9 Major depressive disorder, single episode, unspecified; E03.9 Hypothyroidism, unspecified; R42 Dizziness and giddiness; Z79.899 Other long term (current) drug therapy

== ENCOUNTER → 2017-09-03 | Outpatient (CLI) | payer OTHER ==
[~2017-09-03] MED LIST changes: -ACET-1256 PO; +CYCL0.052 OP; +KETO1DRO13 OPB; -LEVO-217 PO; +LEVO50TA6 PO; +MAGN1CAP4 PO; +MAGN250T3 PO; -MAGN400T6 PO; +MECL1TAB42 PO; -NORT10CA2 PO; +NRT/25 PO; +POTA20TA11 PO; +PRT40 PO; +RIBO100C PO; -RIBO100T2 PO; +RIBO1TAB4 PO; +VITACAP37 PO
[2017-09-03 13:31] VITALS: BP 110/66; PULSE 77; TEMP 36.8; O2SAT 94
--- NOTE | 2017-09-03 17:16 | Radiation Oncology Follow-Up ---
Radiation Oncology Follow-Up Date of Visit Sep 03, 2017. 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 She is detected no masses or tenderness. She's had no change in the axilla. She noticed no swelling of her arm. She is up-to-date on mammography. She had a mammogram on 12/04/2016. This was stable with post left breast changes from prior lumpectomy. Is no mammographic evidence of malignancy. She is now returning to in no mammography. These will continue to be digital diagnostic mammograms. She continues follow-up with Dr. Pratt. She did not tolerate anti-estrogen therapy. She was hospitalized in June for chest pain and had complete cardiac workup. This proved to be negative. Testing included CT scan as well as a treadmill stress test. Allergies Coded Allergies: Codeine (Verified Adverse Reaction, Intermediate, SEVERE LETHARGY (" KNOCKS ME OUT"), 12/20/14) Uncoded Allergies: TAPE (Allergy, Severe, MENDEZ SEVERE REDNESS, 09/26/13) Home Medications Scheduled Aspirin (Aspirin Ec), 81 MG PO DAILY Calcium Carbonate-Vitamin D (Calcium 600 + D), 2 TAB PO DAILY Clonazepam (Clonazepam), 1 MG PO HS Cyclosporine (Restasis Eye Drops), 1 DROP OP BID Fish Oil ([place]-3), 2 CAP PO DAILY Stnwfdnrdim-Ipafkydehoo-Toz C- (Glucosamine Chondroitin), 3,000 MG DAILY Ketotifen Fumarate (Ophth) (Thera Tears Allergy Eye I), 1 DROP OPB DIRECTED Levothyroxine Sodium (Levothyroxine Sodium), 50 MCG PO DAILY Magnesium Oxide (Magnesium), 500 MG PO DAILY Meclizine (Antivert *), 25 MG PO Q6HR PRN Nortriptyline Hcl (Pamelor), 25 MG PO HS Riboflavin (Riboflavin), 400 MG PO DAILY Tocopheryl Acet,Dl-Alpha (Vitamin E), 400 INTER.UNIT PO BID Scheduled PRN Valacyclovir Hcl (Valtrex), 0 PO UD PRN for COLD SORES Review of Systems Gastrointestinal: GI Comments: IBS Oral: Symptoms: No Problems Respiratory: Symptoms: WNL Urinary: Symptoms: WNL Skin: Symptoms: No Problems Breast: Right Upper Arm Measurement: 29.6 Right Mid Arm Measurement: 24.1 Right Wrist Measurement: 15.7 Left Upper Arm Measurement: 29.0 Left Mid Arm Measurement: 23.8 Left Wrist Measurement: 15.6 Arm Dominence: Right Patient Cosmetic Evaluation: Excellent Staff Cosmetic Evalaluation: Excellent Physical Exam Vital Signs Date Time Temp Pulse Resp B/P (MAP) Pulse Ox O2 Delivery O2 Flow Rate FiO2 09/03/17 13:31 36.8 77 16 110/66 94 Fatigue: None General Appearance: no apparent distress Eyes: normal inspection, EOMI ENT: normal ENT inspection, hearing grossly normal Neck: no adenopathy, thyroid normal Respiratory/Chest: lungs clear, no respiratory distress, no accessory muscle use Breast: Breast examination reveals well-healed incisions of the left breast. There are no masses or tenderness and no axillary adenopathy. She has no skin retractions or nipple changes. Using the [place] score cosmesis she has a excellent outcome. The right breast showed no masses or tenderness and no axillary adenopathy. Cardiovascular: regular rate, rhythm, no gallop, no murmur Abdomen: non tender, soft Neurologic/Psychiatric: no motor/sensory deficits, alert, normal mood/affect Skin: warm/dry Lymphatic: no adenopathy Laboratory Studies Test 07/23/17 21:05 07/24/17 00:00 07/24/17 07:41 White Blood Count 6.75 K/uL (4.8-10.8) Red Blood Count 4.62 M/uL (4.2-5.4) Hemoglobin 14.8 g/dL (12.0-16.0) Hematocrit 43.5 % (37-47) Mean Corpuscular Volume 94.2 fL (80-100) Mean Corpuscular Hemoglobin 32.0 pg (25-34) Mean Corpuscular Hemoglobin Concent 34.0 g/dl (32-36) Platelet Count 218 K/uL (130-400) Mean Platelet Volume 10.4 fL (7.4-10.4) Neutrophils (%) (Auto) 44.2 % Lymphocytes (%) (Auto) 44.1 % Monocytes (%) (Auto) 8.9 % Eosinophils (%) (Auto) 1.9 % Basophils (%) (Auto) 0.6 % Neutrophils # (Auto) 2.98 K/uL (1.4-6.5) Lymphocytes # (Auto) 2.98 K/uL (1.2-3.4) Monocytes # (Auto) 0.60 K/uL (0.11-0.59) Eosinophils # (Auto) 0.13 K/uL (0-0.5) Basophils # (Auto) 0.04 K/uL (0-0.2) RDW Standard Deviation 42.6 fL (36.4-46.3) RDW Coefficient of Variation 12.5 % (11.5-14.5) Immature Granulocyte % (Auto) 0.3 % Immature Granulocyte # (Auto) 0.02 K/uL (0.00-0.02) Prothrombin Time 9.8 SECONDS (9.0-12.0) Prothrombin Time INR 0.9 (0.9-1.1) D-Dimer 570 ug/L FEU (0-500) Sodium Level 142 mmol/L (136-145) 142 mmol/L (136-145) Potassium Level 3.9 mmol/L (3.5-5.1) 3.7 mmol/L (3.5-5.1) Chloride Level 107 mmol/L (98-107) 110 mmol/L (98-107) Carbon Dioxide Level 30 mmol/L (21-32) 26 mmol/L (21-32) Anion Gap 5.0 mmol/L (3-11) 6.0 mmol/L (3-11) Blood Urea Nitrogen 22 mg/dl (7-18) 20 mg/dl (7-18) Creatinine 1.10 mg/dl (0.60-1.20) 0.82 mg/dl (0.60-1.20) Est Creatinine Clear Calc Drug Dose 42.4 ml/min 55.8 ml/min Estimated GFR () 58.9 84.0 Estimated GFR (Non- 50.8 72.5 BUN/Creatinine Ratio 20.4 (10-20) 24.6 (10-20) Random Glucose 85 mg/dl (70-99) 87 mg/dl (70-99) Calcium Level 8.9 mg/dl (8.5-10.1) 8.2 mg/dl (8.5-10.1) Magnesium Level 2.3 mg/dl (1.8-2.4) Total Bilirubin 0.3 mg/dl (0.2-1) Aspartate Amino Transferase (AST) 22 U/L (15-37) Alanine Aminotransferase (ALT) 30 U/L (12-78) Alkaline Phosphatase 98 U/L (45-117) Troponin I < 0.015 ng/ml (0-0.045) < 0.015 ng/ml (0-0.045) Pro-B-Type Natriuretic Peptide 71 pg/ml (0-900) Total Protein 7.6 gm/dl (6.4-8.2) Albumin 3.5 gm/dl (3.4-5.0) Globulin 4.1 gm/dl (2.5-4.0) Albumin/Globulin Ratio 0.9 (0.9-2) Thyroid Stimulating Hormone (TSH) 5.450 uIu/ml (0.300-4.500) Chemistry Specimen Hemolysis Urine Color YELLOW Urine Appearance CLEAR (CLEAR) Urine pH 8.0 (4.5-7.5) Urine Specific [place] 1.038 (1.000-1.030) Urine Protein NEG (NEG) Urine Glucose (UA) NEG (NEG) Urine Ketones NEG (NEG) Urine Occult Blood NEG (NEG) Urine Nitrite NEG (NEG) Urine Bilirubin NEG (NEG) Urine Urobilinogen NEG (NEG) Urine Leukocyte Esterase MODERATE (NEG) Urine WBC (Auto) 5-10 /hpf (0-5) Urine RBC (Auto) 0-4 /hpf (0-4) Urine Hyaline Casts (Auto) 0 /lpf (0-5) Urine Epithelial Cells (Auto) 5-10 /lpf (0-5) Urine Bacteria (Auto) NEG (NEG) Total Creatine Kinase 63 U/L (26-192) Creatine Kinase MB 0.8 ng/ml (0.5-3.6) Creatine Kinase MB Ratio 1.3 (0-3.0) Triglycerides Level 80 mg/dl (0-150) Cholesterol Level 250 mg/dl (0-200) HDL Cholesterol 72 mg/dl LDL Cholesterol, Calculated 162 mg/dl VLDL Cholesterol, Calculated 16 mg/dl Cholesterol/HDL Ratio 3.5 Free Thyroxine 0.81 ng/dl (0.80-1.60) Additional Studies Ms. Larsen is a premenopausal 53-year-old female with a family history of breast cancer. The patient's mother of breast cancer at age 65. She recently underwent her first ever bilateral digital screening mammogram on 05/06. This showed a spiculated mass and associated architectural distortion measuring 1.2 x 1.3 x 1.1 cm in the upper outer middle one third of the left breast. Targeted ultrasound and additional mammographic views were recommended. A possible second 0.58 cm mass was noted in the upper outer anterior left breast for which additional targeted ultrasound and possible additional mammographic views were recommended. On 05/13/2017 patient underwent ultrasound of the left breast. Real-time high-resolution ultrasound was performed of the left upper outer quadrant and axilla. At the 2:30 to 3:00 axis, 4 cm from the nipple, there was an angular and spiculated hypoechoic mass measuring 1.4 x 0.7 x 1.3 cm. This correlated with the mammographic mass and was suspicious for malignancy. Additional ultrasound was performed throughout the left upper outer quadrant to evaluate a possible second 0.6 cm mass. At the 12:00 periareolar breast was a predominantly anechoic cystic appearing mass measuring 0.5 x 0.2 x 0.3 cm. This possibly correlated with the previously seen mass but had characterizations of cyst and a cyst aspiration was suggested. Ultrasound and the left axilla demonstrated to morphologically normal lymph nodes with no suspicious lymphadenopathy. On 05/20/2017 the patient underwent an ultrasound guided core biopsy of the left breast at the 2:30 position. This revealed an infiltrating ductal carcinoma grade 1 of 3 with no in situ component identified. No perineural or lymphovascular space invasion was identified. Estrogen receptors were positive (90%, strong). Progesterone receptors were positive (90%, strong). HER-2/arie was equivocal (2+). This was evaluated by HER-2 gene amplification by FISH and was reported as negative. Case: [id number]. Patient was seen by Dr. Lora Avina for evaluation and discussion of treatment options. Patient ultimately decided to proceed with breast conserving therapy. Therefore on 06/17/2017 she underwent a left needle localized lumpectomy and sentinel lymph node biopsy. The sentinel lymph node showed no evidence of metastatic disease. 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 Invasive tumor is positive at the inked inferior margin. It is located 1.5 mm from the inked anterior margin and 3.5 mm from the inked deep margin. However the final anterior inferior margin was reexcised and this was negative. There was no lymphovascular invasion identified. The tumor measured 1.3 cm with clear margins. The closest margin was the deep margin at 3.5 mm. The final AJCC pathologic staging was therefore pT1c pN0(sn-), ER positive, WI positive and HER-2/arie negative. Accession #: [id number]. The patient was seen prior to surgery by Dr. Quoc Bermudez, medical oncologist. He discussed potential adjuvant therapies but was awaiting the final pathology. The patient went on to have a ROBAUTO PAM50 genomic test. She received a Prosigna score of 38. This places her in the upper portion of the low risk category. This indicates a probability of distant recurrence at 10 years of 3% . This test however is verified in post menopausal females. Patient is scheduled to see Dr. Bermudez on July 16 to discuss these findings. He has suggested consideration of a PET scan for further staging and will discuss this with the patient. We were asked to see the patient in referral to discuss the role of adjuvant radiation. She underwent a CT simulation and was found to be a candidate for accelerated partial breast irradiation. Radiation was completed 08/05/2017. She received 3850 cGy. Assessment & Plan Plan: Continue with annual mammography. Continue regular follow-up with Dr. Pratt and her primary care physician. We asked her to return to our office in 1 year. She may cause she has any questions or concerns in the interim. Total Time In Follow-Up I spent 20 minutes speaking to the patient performing examination. I spent 15 minutes reviewing information in completing this note. Copy To Demetria Rayo M.D.; Hao Pratt M.D. Problem Qualifiers (1) Carcinoma of upper-outer quadrant of left female breast: Estrogen receptor status: positive Qualified Codes: C50.412 - Malignant neoplasm of upper-outer quadrant of left female breast; Z17.0 - Estrogen receptor positive status [ER+]
== END | disposition home or self-care (01) ==
LOC: C.ONC 13:10
PROVIDERS: ATTEND Physician Assistant Medical
DX: Z08 Encounter for follow-up examination after completed treatment for malignant neoplasm (principal); Z92.3 Personal history of irradiation; Z85.3 Personal history of malignant neoplasm of breast

== ENCOUNTER → 2017-12-07 | Outpatient (CLI) | payer OTHER ==
[~2017-12-07] MED LIST changes: -ANT25 PO; -MAGN1CAP4 PO; -POTA20TA11 PO; -RIBO1TAB4 PO; -RSTOPS OP; -VITA400C15 PO
--- NOTE | 2017-12-07 15:09 | MAMMOGRAPHY REPORT ---
BILATERAL DIGITAL DIAGNOSTIC MAMMOGRAM TOMOSYNTHESIS WITH CAD: 12/07/2017 CLINICAL HISTORY: 72-year-old woman with a personal history of left breast cancer status post breast conservation treatment, also status post benign stereotactic biopsy in the left breast in 2014. TECHNIQUE: Bilateral breast tomosynthesis in addition to standard 2D mammography was performed. Curre nt study was also evaluated with a Computer Aided Detection (CAD) system. COMPARISON: Comparison is made to exams dated: 12/04/2016 ultrasound, 12/04/2016 mammogram, 12/03/2015 stoney mogram, 05/29/2015 mammogram, 05/29/2015 stereotactic biopsy, and 05/14/2015 mammogram - [facility]. BREAST COMPOSITION: There are scattered areas of fibroglandular density in both breasts. FINDINGS: There is expected architectural distortion in the upper outer posterior left breast, at the site of prior lumpectomy. Several surgical clips project over the superior left axillary region on the MLO view. There is a stable metallic biopsy marker clip in the medial anterior left breast, jessica ting the site of prior benign stereotactic biopsy. There are a few benign rim calcifications in the breasts. A stable lobulated and circumscribed 10 mm mass in the 3:00 right breast was previously doc umented to represent a simple cyst on ultrasound. No new suspicious mass, architectural distortion o r cluster of microcalcifications is seen. IMPRESSION: ACR BI-RADS CATEGORY 2: BENIGN Stable bilateral mammograms, without mammographic evidence of malignancy. Bilateral mammography is r ecommended in one year, and consider remaining a diagnostic patient, given the personal history of le ft breast cancer, in case any additional mammographic views and/or ultrasound may be needed. The patient has been verbally notified of the results. Approximately 10% of breast cancers are not detected with mammography. A negative mammographic report should not delay biopsy if a clinically suggestive mass is present. Laura Hilton M.D. ay/:12/07/2017 09:27:09 Rn Cardiovascular Icu: Ni Horowitz, [facility] letter sent: Normal / BI-RADS Code: ACR BI-RADS Category 2: Benign
== END | disposition home or self-care (01) ==
LOC: C.MAMM 08:48
PROVIDERS: ATTEND Physician Assistant Medical
DX: Z12.31 Encounter for screening mammogram for malignant neoplasm of breast (principal); Z85.3 Personal history of malignant neoplasm of breast